=== PATIENT | female | born 1960 | race Caucasian/White ===

== ENCOUNTER 2017-08-20 17:56 | Emergency (ER) | payer BC ==
[2017-08-20] MEDS ORDERED: LET GEL TOPICAL 1 EA SYR TP ONE ×2 (18:04→18:05)
[2017-08-20 18:08] VITALS: BP 131/78; PULSE 92; RESP 18; TEMP 97.3; O2SAT 96
--- NOTE | 2017-08-20 18:27 | EDPHY ---
H & P Time Seen by Provider: 08/20/17 18:26 HPI/ROS: Chief complaint. Scalp laceration HPI. Patient 57-year-old female presents emergency department lacerations upper head. She was down in the basement moving things and a television fell on her head. No loss of consciousness. No neck pain or other injuries. It bled a lot. Injury occurred just prior to arrival. ROS Constitutional. no fever/chills, no weakness Eyes. no problems with vision ENT. no sore throat, no nasal drainage Cardiovascular. no chest pain Respiratory. no shortness of breath, no cough Abdominal. no abdominal pain, no nausea/vomiting, no diarrhea . no problems urinating MS. no calf pain/swelling, no neck/back pain, no joint pain Skin. Scalp laceration Lymph. no swollen glands Neuro. no headache, no dizziness, no difficulty walking or with speech Past Medical/Surgical History: Dyslipidemia Social History: Single, nonsmoker, no alcohol Smoking Status: Never smoked Physical Exam: General Appearance: Alert well-developed female mild distress vital signs are stable Eyes: Pupils equal and round no pallor or injection. ENT, Mouth: Mucous membranes are moist. Respiratory: There are no retractions, lungs are clear to auscultation. Cardiovascular: Regular rate and rhythm. Gastrointestinal: Abdomen is soft and nontender, no masses, bowel sounds normal. Neurological: Awake and alert, sensory and motor exams grossly normal. Skin: 2.5 cm laceration to the top of her scalp. Musculoskeletal: Neck is supple nontender. Extremities symmetrical, full range of motion. Psychiatric: Patient is oriented X 3, there is no agitation. Constitutional: Initial Vital Signs Temperature (C) 36.3 C 08/20/17 18:06 Heart Rate 92 08/20/17 18:06 Respiratory Rate 18 08/20/17 18:06 Blood Pressure 131/78 H 08/20/17 18:06 O2 Sat (%) 96 08/20/17 18:06 O2 Delivery Mode Room Air Allergies/Adverse Reactions: Penicillins Allergy (Verified 08/20/17 18:05) Sulfa (Sulfonamide Antibiotics) Allergy (Verified 08/20/17 18:05) Home Medications: Medication Instructions Recorded Lovastatin 02/12/14 Medical Decision Making Procedures: Procedure: Laceration repair. Verbal consent was obtained from the patient. The 2.5 cm laceration on the scalp was anesthetized in the usual fashion. The wound was irrigated, draped and explored to its base with a gloved finger. There were no deep structures involved. No tendon injury was identified. The wound was repaired with five 4- 0 prolene sutures. The wound repair was simple. The procedure was performed by myself. ED Course/Re-evaluation: Patient remained stable. Patient and I discussed treatment plan including criteria for return importance of follow-up and further evaluation. She expresses understanding and agreement Differential Diagnosis: I considered closed head injury, concussion, skull fracture, cervical spine injury, retained foreign body, infection potential of wound - Data Points Medications Given: Discontinued Medications Tetracaine/Epinephrine/Lidocaine (Let Gel Topical) 1 ea TP EDNOW ONE Stop: 08/20/17 18:06 Last Admin: 08/20/17 18:06 Dose: 1 ea Departure - Departure Disposition: Home, Routine, Self-Care Clinical Impression: Scalp laceration Qualifiers: Encounter type: initial encounter Qualified Code(s): S01.01XA - Laceration without foreign body of scalp, initial encounter Condition: Good Instructions: Care For Your Stitches (ED) Additional Instructions: Ice to the top of your head next 24 hr. Tylenol and ibuprofen as needed for pain. You may wash your hair with stitches in. Return for signs of infection. Stitches out 7 days Referrals: Terra Moss MD [Primary Care Provider] - 5-7 days, call for appt.
== END 2017-08-20 18:50 | disposition home or self-care (01) ==
LOC: CED 17:56
PROC: 0HQ0XZZ Repair Scalp Skin, External Approach (ICD-10-PCS; principal; 2017-08-20)
DX: S01.01XA Laceration without foreign body of scalp, initial encounter (principal); W20.8XXA Other cause of strike by thrown, projected or falling object, initial encounter; Y99.8 Other external cause status; Y93.89 Activity, other specified

== ENCOUNTER → 2018-02-14 | Day surgery (SDC) | payer BC ==
[~2018-02-14] MED LIST: BUPIVACAINE 0.5% 30 ML SDV ONE; LIDOCAINE 1% 300 MG/30 ML SDV ONE; THROMBIN (BOVINE) 5,000 UNIT VIAL TP ONE
== END ==
LOC: FIMAGING 07:14
PROVIDERS: ATTEND Family Medicine
PROC: 0HBT3ZX Excision of Right Breast, Percutaneous Approach, Diagnostic (ICD-10-PCS; principal; 2018-02-14)
DX: N60.11 Diffuse cystic mastopathy of right breast (principal); R92.0 Mammographic microcalcification found on diagnostic imaging of breast

== ENCOUNTER → 2018-10-17 | Outpatient (CLI) | payer BC | LOC: FIMAGING 09:16 | PROVIDERS: ATTEND Family Medicine | DX: R92.8 Other abnormal and inconclusive findings on diagnostic imaging of breast (principal) ==

== ENCOUNTER → 2018-11-01 | Outpatient (CLI) | payer BC | LOC: FIMAGING 09:40 ==